=== PATIENT | female | born 1970 | race Caucasian/White ===

== ENCOUNTER → 2016-10-29 | Outpatient (CLI) | payer OTHER ==
[~2016-10-29] MED LIST: ACHYD1T PO; ARIP10TA2 PO; ARPZ10T PO; DCS100C PO; HYDR1TAB75 PO; IBP800T PO; LITH300C; LITH300C PO; NITR100C3 PO; OXYB10TA PO; OXYB5TAB9 PO; PARO10TA21; PHEN200T27 PO; TOPI15CA6 PO; TRAZ150T42 PO
--- OUTSIDE RECORDS SUMMARY | 2016-10-29 13:25 | XMS REPORT ---
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 Active Problem Other and unspecified bipolar disorders 296.89 Active Problem Bipolar 1 disorder F31.9 Active Problem 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
--- NOTE | 2016-10-29 19:00 | Diagnostic Imaging Report ---
Bilateral screening mammogram. The current study was also evaluated with a Computer Aided Detection (CAD) system. INDICATION: Screening. No current complaints stated on the questionnaire. COMPARISON: 07/12/12. FINDINGS: The breasts are composed of scattered fibroglandular densities. There are occasional benign-appearing calcifications. Allowing for technique and positional differences, no suspicious change is seen. IMPRESSION: No significant change. ACR BI-RADS Category 2: Benign findings. Result letter will be mailed to the patient. Note: At least 10% of breast cancer is not imaged by mammography. Dictated by: Dictated on workstation # [id number]
== END ==
LOC: RAD 13:21
PROVIDERS: ATTEND Nurse Practitioner Adult Health
DX: Z12.31 Encounter for screening mammogram for malignant neoplasm of breast (principal)
CPT/HCPCS: 77067

== ENCOUNTER 2017-03-25 21:52 | Emergency (ER) | payer SELFPAY ==
[~2017-03-25] VITALS: Ht 165.1 cm; Wt 77.1 kg
[2017-03-25] MEDS ORDERED: QUET100T69 (22:22)
[2017-03-25] MEDS ORDERED: CITA10TA7 (22:22)
[2017-03-25] MEDS ORDERED: DICY10CA12 (22:22)
[2017-03-25] MEDS ORDERED: ETOD400T PO (22:22)
[2017-03-25] MEDS ORDERED: FAMOTIDINE 20 MG (PEPCID) TABLET PO STA (23:18)
[2017-03-25] MEDS ORDERED: ONDANSETRON 4 MG (ZOFRAN) ORAL DISSOLVE TAB SL STA (23:18)
--- NOTE | 2017-03-25 23:18 | ED General ---
General Chief Complaint: Bite-Animal/Human/Insect Stated Complaint: RT LEG SWELLING FROM SPIDER BITE X3 WEEK/VOMITTING Nursing Triage Note: c/o spider bite 3 weeks ago, c/o tick bite 2 weeks ago. c/o n/v. generalized weakness Nursing Sepsis Screen: No Definite Risk History of Present Illness Time Seen by Provider: 21:00 Initial Comments Evaluation for spider bite to the right ankle and take bite to the right lower abdomen. He was initially prescribed doxycycline she stopped taking this approximately 3 days ago and was prescribed Bactrim DS and is currently taking this. Timing/Duration: Getting Worse Severity: Mild Modifying Factors: improves with Rest Associated Systoms: No Chest Pain, No Cough, No Diaphoresis, No Fever/Chills, No Headaches, No Loss of Appetite, No Malaise, Nausea/Vomiting, No Rash, No Shortness of Air, No Syncope, No Weakness, Other (patient denies arthralgias and myalgias.) Allergies and Home Medications Allergies Coded Allergies: No Known Drug Allergies (Unverified , 12/19/09) Home Medications Citalopram Hydrobromide 10 Mg Tablet, #30 (Reported) Dicyclomine HCl 10 Mg Capsule, #90 (Reported) Etodolac 400 Mg Tablet, 400 MG PO, (Reported) Mupirocin Calcium 15 Gm Cream..g., 15 GM TP TID, #1 Ref 0 Apply to affected area 3 times a day. Prescribed by: COREY SANDOVAL on 03/26/17 0015 Oxybutynin Chloride 10 Mg Tab.osm.24, 5 MG PO TID, (Reported) Quetiapine Fumarate 100 Mg Tablet, #30 (Reported) Topiramate 15 Mg Cap.sprink, 50 MG PO BID, (Reported) DOESN'T TAKE FOR SEIZURES Constitutional: no symptoms reported, see HPI EENTM: no symptoms reported, see HPI Respiratory: no symptoms reported, see HPI Cardiovascular: no symptoms reported, see HPI Gastrointestinal: see HPI, nausea Genitourinary: no symptoms reported, see HPI Musculoskeletal: no symptoms reported, see HPI Skin: see HPI, other (insect bite to right lateral ankle, bite to right lower abdomen) Psychiatric/Neurological: No Symptoms Reported, See HPI Hematologic/Lymphatic: No Symptoms Reported, See HPI Immunological/Allergic: no symptoms reported, see HPI All Other Systems Reviewed Negative Unless Noted: Yes Past Xysvwzi-Occiul-Jzemta Hx Patient Social History Alcohol Use: Denies Use Recreational Drug Use: No (RECOVERING ALCOHOLIC AND ADICT 7 YRS) Smoking Status: Current Everyday Smoker Type Used: Cigarettes Recent Foreign Travel: No Contact w/Someone Who Travel: No Recent Infectious Disease Expo: No Recent Hopitalizations: No Surgeries Surgeries: Breast, Eye Surgery, Gallbladder, Hysterectomy Respiratory Hx Respiratory Disorders: No Cardiovascular Hx Cardiac Disorders: No Neurological Hx Neurological Disorders: No Reproductive System Hx Reproductive Disorders: Yes Sexually Transmitted Disease: No Genitourinary Hx Genitourinary Disorders: Yes Gastrointestinal Hx Gastrointestinal Disorders: No Musculoskeletal Hx Musculoskeletal Disorders: No Endocrine Hx Endocrine Disorders: No HEENT HX ENT Disorders: No Psychosocial Hx Psychiatric Problems: Yes (BIPOLAR ) Behavioral Health Disorders: Bipolar, Schizophrenia Blood Transfusions Hx Blood Disorders: No Reviewed Nursing Assessment Reviewed/Agree w Nursing PMH: Yes Physical Exam Vital Signs Vital Sign - Last 12Hours 03/25/17 22:14 Temp 99.4 Pulse 73 Resp 18 B/P (MAP) 137/86 Pulse Ox 97 Capillary Refill : Less Than 3 Seconds General Appearance: No Apparent Distress, WD/WN HEENT: PERRL/EOMI, TMs Normal, Normal ENT Inspection, Pharynx Normal Neck: Full Range of Motion, Normal Inspection, Non Tender Respiratory: Chest Non Tender, Lungs Clear, Normal Breath Sounds, No Accessory Muscle Use, No Respiratory Distress Cardiovascular: Regular Rate, Rhythm, No Edema, No Murmur, Normal Peripheral Pulses Gastrointestinal: Normal Bowel Sounds, Non Tender, Soft Back: Normal Inspection, No CVA Tenderness Extremity: Normal Capillary Refill, Normal Inspection, Normal Range of Motion, Non Tender, No Pedal Edema Neurologic/Psychiatric: Alert, Oriented x3, No Motor/Sensory Deficits, Normal Mood/Affect Skin: Normal Color, Warm/Dry, Other (trace erythema with small puncture site to the lateral aspect of the right ankle. No warmth, fluctuance or induration noted. No active drainage.) Progress/Results/Core Measures Results/Orders Lab Results Laboratory Tests Test 03/25/17 23:26 Range/Units White Blood Count 10.7 4.3-11.0 10^3/uL Red Blood Count 4.39 4.35-5.85 10^6/uL Hemoglobin 14.1 11.5-16.0 G/DL Hematocrit 41 35-52 % Mean Corpuscular Volume 94 80-99 FL Mean Corpuscular Hemoglobin 32 25-34 PG Mean Corpuscular Hemoglobin Concent 34 32-36 G/DL Red Cell Distribution Width 13.2 10.0-14.5 % Platelet Count 160 130-400 10^3/uL Mean Platelet Volume 11.0 H 7.4-10.4 FL Neutrophils (%) (Auto) 54 42-75 % Lymphocytes (%) (Auto) 33 12-44 % Monocytes (%) (Auto) 8 0-12 % Eosinophils (%) (Auto) 5 0-10 % Basophils (%) (Auto) 0 0-10 % Neutrophils # (Auto) 5.8 1.8-7.8 X 10^3 Lymphocytes # (Auto) 3.5 1.0-4.0 X 10^3 Monocytes # (Auto) 0.9 0.0-1.0 X 10^3 Eosinophils # (Auto) 0.5 H 0.0-0.3 10^3/uL Basophils # (Auto) 0.0 0.0-0.1 10^3/uL Sodium Level 140 135-145 MMOL/L Potassium Level 3.9 3.6-5.0 MMOL/L Chloride Level 113 H 98-107 MMOL/L Carbon Dioxide Level 16 L 21-32 MMOL/L Anion Gap 11 5-14 MMOL/L Blood Urea Nitrogen 16 7-18 MG/DL Creatinine 0.99 0.60-1.30 MG/DL Estimat Glomerular Filtration Rate > 60 BUN/Creatinine Ratio 16 Glucose Level 75 70-105 MG/DL Calcium Level 9.1 8.5-10.1 MG/DL Total Bilirubin 0.3 0.1-1.0 MG/DL Aspartate Amino Transf (AST/SGOT) 15 5-34 U/L Alanine Aminotransferase (ALT/SGPT) 16 0-55 U/L Alkaline Phosphatase 62 40-136 U/L Total Protein 7.6 6.4-8.2 GM/DL Albumin 4.4 3.2-4.5 GM/DL My Orders Orders - COREY SANDOVAL Cbc With Automated Diff (03/25/17 22:46) Comprehensive Metabolic Panel (03/25/17 22:46) Tick Panel With Lyme Eia (03/25/17 22:46) Ondansetron Oral Dissolve Tab (Zofran (03/25/17 23:18) Famotidine Tablet (Pepcid Tablet) (03/25/17 23:18) Vital Signs/I&O Vital Sign - Last 12Hours 03/25/17 03/26/17 22:14 00:18 Temp 99.4 99.4 Pulse 73 73 Resp 18 18 B/P (MAP) 137/86 Pulse Ox 97 97 Blood Pressure Mean: 103 Progress Note : Time: 21:00 Progress Note Initial evaluation completed, recommended labs and reevaluation. 2349 all labs essentially normal, patient reports that she is feeling better. She'll follow up with results from the tick panel at [facility]. Departure Impression Impression: Primary Impression: Insect bite Qualified Codes: W57.XXXA - Bitten or stung by nonvenomous insect and other nonvenomous arthropods, initial encounter Disposition: HOME, SELF-CARE Condition: Stable Departure-Patient Inst. Decision time for Depature: 23:30 Referrals: PEEWEE STAPLETON DO (PCP) Primary Care Physician DIONNE OLEA (Family) Primary Care Physician Patient Instructions: Insect Bites and Stings (DC) Add. Discharge Instructions: Keep insect bite areas clean and dry. Apply peroxide 3-4 times a day, and apply Bactroban ointment. Resume doxycycline and continue taking Bactrim DS. Follow-up at [facility] if symptoms are not improving. Return to emergency department if symptoms worsen. All discharge instructions reviewed with patient and/or family. Voiced understanding. Scripts Mupirocin Calcium (Bactroban) 15 Gm Cream..g. 15 GM TP TID, #1 TUBE 0 Refills Apply to affected area 3 times a day. Prov: COREY SANDOVAL 03/26/17 Copy Copies To 1: NAS MARAVILLA MD, AMY ARNP Mar 25, 2017 23:18
[2017-03-25 23:47] LABS: BASOPHILS % (AUTO) 0 % (0-10); EOSINOPHILS # (AUTO) 0.5 10^3/uL (0.0-0.3); EOSINOPHILS % (AUTO) 5 % (0-10); LYMPHOCYTES # (AUTO) 3.5 X 10^3 (1.0-4.0); LYMPHOCYTES % (AUTO) 33 % (12-44); MEAN CORPUSCULAR HEMOGLOBIN 32 PG (25-34); MEAN CORPUSCULAR HGB CONC 34 G/DL (32-36); MEAN CORPUSCULAR VOLUME 94 FL (80-99); MONOCYTES # (AUTO) 0.9 X 10^3 (0.0-1.0); MONOCYTES % (AUTO) 8 % (0-12); NEUTROPHILS # (AUTO) 5.8 X 10^3 (1.8-7.8); NEUTROPHILS % (AUTO) 54 % (42-75); PLATELET COUNT 160 10^3/uL (130-400); RED BLOOD COUNT 4.39 10^6/uL (4.35-5.85); RED CELL DISTRIBUTION WIDTH 13.2 % (10.0-14.5); WHITE BLOOD COUNT 10.7 10^3/uL (4.3-11.0)
[2017-03-26 00:11] LABS: ALANINE AMINOTRANSFERASE 16 U/L (0-55); ALBUMIN 4.4 GM/DL (3.2-4.5); ANION GAP 11 MMOL/L (5-14); ASPARTATE AMINO TRANSFERASE 15 U/L (5-34); BILIRUBIN,TOTAL 0.3 MG/DL (0.1-1.0); BLOOD UREA NITROGEN 16 MG/DL (7-18); BUN/CREATININE RATIO 16; CALCIUM 9.1 MG/DL (8.5-10.1); CARBON DIOXIDE 16 MMOL/L (21-32); CHLORIDE 113 MMOL/L (98-107); CREATININE SERUM 0.99 MG/DL (0.60-1.30); GFR ESTIMATED > 60; GLUCOSE 75 MG/DL (70-105); POTASSIUM 3.9 MMOL/L (3.6-5.0); SODIUM 140 MMOL/L (135-145); TOTAL PROTEIN 7.6 GM/DL (6.4-8.2)
[2017-03-26] MEDS ORDERED: MUPI15CR TP (00:15)
[2017-03-26 00:18] VITALS: BP 137/86
[2017-03-26 23:29] LABS: LYME AB G M 0.16 Index (0.00-0.89)
[2017-03-29 07:20] LABS: LYME AB INTERP Negative (Negative)
[2017-03-29 15:51] LABS: IGG ROCKY MOUNTAIN SPOTTED FEV <1:16 (<1:16); IGM ROCKY MOUNTAIN SPOTTED FEV <1:10 (<1:10)
--- OUTSIDE RECORDS SUMMARY | 2017-03-30 05:15 | XMS REPORT ---
Author Author FREDDY GARCES Organization eClinicalWorks Address Unknown Phone Unavailable Care Team Providers Care Polymer Tester Name Role Phone FREDDY GARCES CP Unavailable [...] Start Date End Date Status Dosage Topiramate [facility] [address]-10 100 MG Orally Once a day 1 1/2 tablets Results No Known Results Summary Purpose eClinicalWorks Submission
--- OUTSIDE RECORDS SUMMARY | 2017-03-30 05:15 | XMS REPORT ---
Author Author FREDDY GARCES Organization eClinicalWorks Address Unknown Phone Unavailable Care Team Providers Care Casting House Laborer Name Role Phone FREDDY GARCES CP Unavailable Allergies, Adverse Reactions, Alerts Substance Reaction Event Type N.K.D.A. 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 Problem [...] Start Date End Date Status Dosage Topiramate [facility] [address]-20 50 mg TAKE THREE TABLETS BY MOUTH ONCE DAILY Seroquel [facility] [address]-52 300 MG Orally Once a day Sep 03, 2015 1 tablet at bedtime Procedures Procedure Coding System Code Date Office Visit, Est Pt., Level 3 CPT-4 22295 2016 Vital Signs Date/Time: 2016 Cardiac Monitoring Heart Rate 96 bpm Weight 154.7 lbs Height 66 in BMI 24.97 Index Blood Pressure Diastolic 60 mmHg Blood Pressure Systolic 110 mmHg Results No Known Results Summary Purpose eClinicalWorks Submission
--- OUTSIDE RECORDS SUMMARY | 2017-03-30 05:16 | XMS REPORT ---
Author Author FREDDY GARCES Organization eClinicalWorks Address Unknown Phone Unavailable Care Team Providers Care Mental Health Nurse Name Role Phone FREDDY GARCES CP Unavailable Allergies No Known Allergies Problems Problem Type Condition Code Onset Dates Condition Status Problem Spasm of muscle 728.85 Active Problem Bipolar I disorder, most recent episode (or current) mixed, severe, without mention of psychotic behavior 296.63 Active Problem Unspecified urticaria 708.9 Active Assessment Bipolar disorder, current episode mixed, [...] Start Date End Date Status Dosage Topiramate [facility] [address]-94 100 MG Orally Once a day 1 1/2 tablets Seroquel [facility] [address]-65 300 MG Orally Once a day Sep 03, 2015 1 tablet at bedtime Citalopram Hydrobromide [facility] [address]-15 10 MG Orally every morning Jul 1 tablet Procedures Procedure Coding System Code Date Office Visit, Est Pt., Level 3 CPT-4 27555 Aug 11, 2016 Vital Signs Date/Time: Aug 11, 2016 Cardiac Monitoring Heart Rate 80 bpm Weight 154.5 lbs Height 66 in BMI 24.93 Index Blood Pressure Diastolic 78 mmHg Blood Pressure Systolic 124 mmHg Results No Known Results Summary Purpose eClinicalWorks Submission
--- OUTSIDE RECORDS SUMMARY | 2017-03-30 05:16 | XMS REPORT ---
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 Problem Unspecified breast screening V76.10 Active Problem Bipolar I disorder, most recent episode (or current) mixed, severe, without mention of psychotic behavior 296.63 Active Problem Other, multiple, and unspecified sites, insect bite, nonvenomous, without mention of infection 919.4 Active Problem 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 Must attend appt on 01/21/2016 for refills TAKE THREE TABLETS BY MOUTH ONCE DAILY Results No Known Results Summary Purpose eClinicalWorks Submission
--- OUTSIDE RECORDS SUMMARY | 2017-03-30 05:16 | XMS REPORT ---
Author Author DEBI SALMON Organization eClinicalWorks Address Unknown Phone Unavailable Care Team Providers Care Child And Adolescent Psychologist Name Role Phone DEBI SALMON CP Unavailable Allergies, Adverse Reactions, Alerts Substance Reaction Event Type N.K.D.A. Info Not Available Non Drug Allergy Problems Problem Type Condition Code Onset Dates Condition Status Assessment Bipolar disorder, current episode mixed, severe, without psychotic features F31.63 Active Problem Unspecified urticaria 708.9 Active Problem Spasm of muscle 728.85 Active Assessment Insomnia, unspecified G47.00 Active Problem Other and unspecified bipolar disorders [...] Instructions Start Date End Date Status Dosage Seroquel [facility] [address]-34 50 MG Orally Once a day Sep 03, 2015 1 tablet at bedtime Topamax [facility] [address]-77 50 MG TAKE THREE TABLETS BY MOUTH ONCE DAILY Klonopin [facility] [address]-59 2 MG Orally Once a day 1 tablet Abilify [facility] [address]-36 15 MG Orally Once a day TAKE ONE TABLET BY MOUTH DAILY Procedures Procedure Coding System Code Date Office Visit, Est Pt., Level 4 CPT-4 90589 Oct 01, 2015 Vital Signs Date/Time: Oct 01, 2015 Cardiac Monitoring Heart Rate 84 bpm Weight 174.2 lbs Height 66 in BMI 28.11 Index Blood Pressure Diastolic 85 mmHg Blood Pressure Systolic 130 mmHg Results No Known Results Summary Purpose eClinicalWorks Submission
--- OUTSIDE RECORDS SUMMARY | 2017-03-30 05:16 | XMS REPORT ---
Author Author GATITO KIM [facility] eClinicalWorks Address Unknown Phone Unavailable Care Team Providers Care Kelp Or Seagrass Gatherer Name Role Phone GATITO KIM Unavailable Allergies, Adverse Reactions, Alerts Substance Reaction [...] nonvenomous, without mention of infection 919.4 Active Assessment Plantar wart B07.0 Active Assessment Callus L84 Active Assessment Left foot pain M79.672 Active Assessment Bipolar 1 disorder F31.9 Active Assessment Establishing care with new doctor, encounter for Z71.89 Active Medications Medication Code System Code Instructions Start Date End Date Status Dosage Topamax [facility] [address]-92 50 mg Orally. Must attend appt on 01/21/2016 for refills TAKE THREE TABLETS BY MOUTH ONCE DAILY Clonazepam [facility] 98107739307 2 MG TAKE ONE TABLET BY MOUTH ONCE DAILY Abilify [facility] [address]-71 15 MG Orally Once a day TAKE ONE TABLET BY MOUTH DAILY Klonopin [facility] [address]-58 2 MG Orally Once a day 1 tablet Seroquel [facility] [address]-79 50 MG Orally Once a day Sep 03, 2015 1 tablet at bedtime Procedures Procedure Coding System Code Date DEBRIDE SKIN/TISSUE CPT-4 11623 January 14, 2016 Office Visit, New Pt., Level 3 CPT-4 16647 January 14, 2016 X-RAY EXAM OF FOOT CPT-4 16333 January 14, 2016 Vital Signs Date/Time: January 14, 2016 Temperature 98.4 F Weight 156.3 lbs Height 66 in BMI 25.22 Index Blood Pressure Diastolic 80 mmHg Blood Pressure Systolic 100 mmHg Cardiac Monitoring Heart Rate 96 bpm Results No Known Results Summary Purpose eClinicalWorks Submission
--- OUTSIDE RECORDS SUMMARY | 2017-03-30 05:16 | XMS REPORT ---
Author Author DEBI SALMON Organization eClinicalWorks Address Unknown Phone Unavailable Care Team Providers Care Roving Department End Finder Name Role Phone DEBI SALMON CP Unavailable Allergies No Known Allergies Problems [...] Start Date End Date Status Dosage Seroquel [facility] [address]-66 50 MG Orally Once a day Sep 03, 2015 1 tablet at bedtime Topamax [facility] [address]-38 50 MG TAKE THREE TABLETS BY MOUTH ONCE DAILY Abilify [facility] [address]-22 15 MG Orally Once a day TAKE ONE TABLET BY MOUTH DAILY Results No Known Results Summary Purpose eClinicalWorks Submission
--- OUTSIDE RECORDS SUMMARY | 2017-03-30 05:16 | XMS REPORT ---
Author Author HENRIQUE HASTINGS Organization eClinicalWorks Address Unknown Phone Unavailable Care Team Providers Care Clinical Nurse Specialist Name Role Phone HENRIQUE HASTINGS CP Unavailable Allergies No Known Allergies Problems [...] without mention of infection 919.4 Active Assessment Equinus deformity of foot M21.6X9 Active Assessment Hammer toe of left foot M20.42 Active Assessment Porokeratosis Q82.8 Active Medications No Known Medications Procedures Procedure Coding System Code Date Office Visit, Est Pt., Level 3 CPT-4 64390 March 13, 2016 Vital Signs Date/Time: March 13, 2016 Blood Pressure Diastolic 72 mmHg Blood Pressure Systolic 128 mmHg Height 66 in Results No Known Results Summary Purpose eClinicalWorks Submission
--- OUTSIDE RECORDS SUMMARY | 2017-03-30 05:16 | XMS REPORT ---
Author Author GEORGE WALDEN Organization eClinicalWorks Address Unknown Phone Unavailable Care Team Providers Care Decorator Inspector Name Role Phone GEORGE WALDEN CP Unavailable Allergies, Adverse Reactions, Alerts Substance Reaction Event Type N.K.D.A. Info Not Available Non Drug Allergy Problems Problem Type Condition ICD-9 Code Onset Dates Condition Status Assessment Bipolar I disorder, most recent episode (or current) mixed, severe , without mention of psychotic behavior 296.63 Active [...] Instructions Start Date End Date Status Dosage Loratadine [facility] [address]-17 10 mg December 11, 2014 take 1 tablet by Oral route 1 time per day take at hs Abilify [facility] [address]-12 15 MG Orally Once a day TAKE ONE TABLET BY MOUTH DAILY Klonopin [facility] [address]-59 1 MG Orally Once a day 1 tablet Topamax [facility] [address]-65 50 MG TAKE THREE TABLETS BY MOUTH ONCE DAILY Procedures Procedure Coding System Code Date Office Visit, Est Pt., Level 3 CPT-4 70592 Jun 04, 2015 Vital Signs Date/Time: Jun 04, 2015 Temperature 98.6 F Weight 185.3 lbs Height 66 in BMI 29.90 Index Blood Pressure Diastolic 90 mmHg Blood Pressure Systolic 134 mmHg Cardiac Monitoring Heart Rate 96 bpm Results No Known Results Summary Purpose eClinicalWorks Submission
--- OUTSIDE RECORDS SUMMARY | 2017-03-30 05:16 | XMS REPORT ---
Author FREDDY Sampson eClinicalWorks Address Unknown Phone Unavailable Care Team Providers Care Hedge Fund Accountant Name Role Phone FREDDY GARCES CP Unavailable [...] without mention of infection 919.4 Active Assessment Methamphetamine use F15.10 Active Assessment Other assisted (current) drug therapy Z79.899 Active Assessment Insomnia, unspecified G47.00 Active Assessment Bipolar I disorder, most recent episode (or current) mixed, moderate F31.62 Active Medications Medication Code System Code Instructions Start Date End Date Status Dosage Abilify [facility] 89055919683 15 MG Orally Once a day X 14 days then DC TAKE 1/2 TABLET BY MOUTH DAILY Topiramate [facility] [address]-65 50 mg TAKE THREE TABLETS BY MOUTH ONCE DAILY Seroquel [facility] [address]-65 100 MG Orally Once a day Sep 03, 2015 1 tablet at HS X 2 weeks then 2 tabs at HS X 2 weeks then 3 tabs at HS Procedures Procedure Coding System Code Date LIPID PANEL CPT-4 14622 March 31, 2016 COMPREHEN METABOLIC PANEL CPT-4 35778 March 31, 2016 Office Visit, Est Pt., Level 5 CPT-4 52323 March 31, 2016 Vital Signs Date/Time: March 31, 2016 Cardiac Monitoring Heart Rate 84 bpm Weight 154.6 lbs Height 66 in Blood Pressure Diastolic 68 mmHg Blood Pressure Systolic 110 mmHg Results No Known Results Summary Purpose eClinicalWorks Submission
--- OUTSIDE RECORDS SUMMARY | 2017-03-30 05:16 | XMS REPORT ---
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.0 Active Problem Other and unspecified bipolar disorders 296.89 Active Problem Bipolar 1 disorder F31.9 Active Problem 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
--- OUTSIDE RECORDS SUMMARY | 2017-03-30 05:16 | XMS REPORT ---
Author Author DEBI SALMON Organization eClinicalWorks Address Unknown Phone Unavailable Care Team Providers Care Inspector Bicycle Name Role Phone DEBI SALMON CP Unavailable [...] Start Date End Date Status Dosage Seroquel [facility] [address]-51 50 MG Orally Once a day Sep 03, 2015 1 tablet at bedtime Abilify [facility] [address]-79 15 MG Orally Once a day TAKE ONE TABLET BY MOUTH DAILY Topamax [facility] [address]-84 50 MG TAKE THREE TABLETS BY MOUTH ONCE DAILY Klonopin [facility] [address]-87 2 MG Orally Once a day 1 tablet Procedures Procedure Coding System Code Date Office Visit, Est Pt., Level 4 CPT-4 58884 Sep 03, 2015 Vital Signs Date/Time: Sep 03, 2015 Cardiac Monitoring Heart Rate 88 bpm Weight 174.8 lbs Height 66 in BMI 28.21 Index Blood Pressure Diastolic 84 mmHg Blood Pressure Systolic 138 mmHg Results No Known Results Summary Purpose eClinicalWorks Submission
--- OUTSIDE RECORDS SUMMARY | 2017-03-30 05:17 | XMS REPORT | Continuity of Care Document ---
Author Author [facility] Address Unknown Phone Unavailable Allergies Medications Problems Date Dx Coded Attending Type Code Diagnosis Diagnosed By 12/08/2008 MORENA ROBERTSON APRN 296.90 EPISODIC MOOD DISORDERS 12/08/2008 MARCELO LUGO MORENA ALAN V58.69 taking high-risk medication 12/08/2008 MORENA ROBERTSON APRN 296.90 EPISODIC MOOD DISORDERS 12/08/2008 MORENA ROBERTSON APRN V58.69 taking high-risk medication 12/08/2008 296.90 EPISODIC MOOD DISORDERS 12/08/2008 V58.69 taking high-risk medication 12/08/2008 296.90 EPISODIC MOOD DISORDERS 12/08/2008 V58.69 taking high-risk medication 12/08/2008 296.90 EPISODIC MOOD DISORDERS 12/08/2008 V58.69 taking high-risk medication 12/08/2008 MARCELO LUGO MORENA ALAN 296.90 EPISODIC MOOD DISORDERS 12/08/2008 MARCELO LUGO MORENA ALAN V58.69 taking high-risk medication 12/08/2008 MORENA ROBERTSON APRN 296.90 EPISODIC MOOD DISORDERS 12/08/2008 MORENA ROBERTSON APRN V58.69 taking high-risk medication 12/08/2008 STAPLETON DO PEEWEE K 296.90 EPISODIC MOOD DISORDERS 12/08/2008 STAPLETON DO PEEWEE K V58.69 taking high-risk medication 12/08/2008 MARCELO LUGO MORENA ALAN 296.90 EPISODIC MOOD DISORDERS 12/08/2008 MORENA ROBERTSON APRN V58.69 taking high-risk medication 12/08/2008 MORENA ROBERTSON APRN 296.90 EPISODIC MOOD DISORDERS 12/08/2008 MORENA ROBERTSON APRN V58.69 taking high-risk medication 12/08/2008 IRAMBLAYNE LUGO GEORGE 296.90 EPISODIC MOOD DISORDERS 12/08/2008 IRAM POULTRY VETERINARIAN, GEORGE V58.69 taking high-risk medication 12/08/2008 ATIF LUGO, KERA R 296.90 EPISODIC MOOD DISORDERS 12/08/2008 ATIF LUGO, KERA R V58.69 taking high-risk medication 12/08/2008 DEBRA WALDEN APRNETTE 296.90 EPISODIC MOOD DISORDERS 12/08/2008 IRAM LUGO GEORGE V58.69 taking high-risk medication 12/08/2008 296.90 EPISODIC MOOD DISORDERS 12/08/2008 V58.69 taking high-risk medication 05/17/2009 MARCELO LUGO MORENA KINCAIDH 799.81 changed sexual interest (libido): decreased 05/17/2009 MARCELO LUGO MORENA PHILLIPS V72.31 Pelvic Exam (Internal) 05/17/2009 MARCELO LUGO MORENA KINCAIDH 799.81 changed sexual interest (libido): decreased 05/17/2009 MARCELO LUGO MORENA KINCAIDH V72.31 Pelvic Exam (Internal) 05/17/2009 799.81 changed sexual interest (libido): decreased 05/17/2009 V72.31 Pelvic Exam (Internal) 05/17/2009 799.81 changed sexual interest (libido): decreased 05/17/2009 V72.31 Pelvic Exam (Internal) 05/17/2009 799.81 changed sexual interest (libido): decreased 05/17/2009 V72.31 Pelvic Exam (Internal) 05/17/2009 ROBERTSON POULTRY VETERINARIAN, MORENA KINCAIDH 799.81 changed sexual interest (libido): decreased 05/17/2009 MARCELO LUGO MORENA PHILLIPS V72.31 Pelvic Exam (Internal) 05/17/2009 ROBERTSON POULTRY VETERINARIAN, MORENA KINCAIDH 799.81 changed sexual interest (libido): decreased 05/17/2009 MARCELO LUGO MORENA PHILLIPS V72.31 Pelvic Exam (Internal) 05/17/2009 PEEWEE STAPLETON DO K 799.81 changed sexual interest (libido): decreased 05/17/2009 PEEWEE STAPLETON DO K V72.31 Pelvic Exam (Internal) 05/17/2009 MARCELO LUGO MORENA ALAN 799.81 changed sexual interest (libido): decreased 05/17/2009 MARCELO LUGO MORENA KINCAIDH V72.31 Pelvic Exam (Internal) 05/17/2009 MARCELO LUGO MORENA ALAN 799.81 changed sexual interest (libido): decreased 05/17/2009 MORENA ROBERTSON APRN V72.31 Pelvic Exam (Internal) 05/17/2009 IRAM LUGO GEORGE 799.81 changed sexual interest (libido): decreased 05/17/2009 IRAM LUGO GEORGE V72.31 Pelvic Exam (Internal) 05/17/2009 ATIF LUGO KERA R 799.81 changed sexual interest (libido): decreased 05/17/2009 ATIF LUGO KERA R V72.31 Pelvic Exam (Internal) 05/17/2009 IRAM LUGO, GEORGE 799.81 changed sexual interest (libido): decreased 05/17/2009 IRAM LUGO GEORGE V72.31 Pelvic Exam (Internal) 05/17/2009 799.81 changed sexual interest (libido): decreased 05/17/2009 V72.31 Pelvic Exam (Internal) 11/12/2009 MORENA ROBERTSON APRN 611.72 LUMP OR MASS IN BREAST 11/12/2009 MORENA ROBERTSON APRN 611.72 LUMP OR MASS IN BREAST 11/12/2009 611.72 LUMP OR MASS IN BREAST 11/12/2009 611.72 LUMP OR MASS IN BREAST 11/12/2009 611.72 LUMP OR MASS IN BREAST 11/12/2009 MORENA ROBERTSON APRN 611.72 LUMP OR MASS IN BREAST 11/12/2009 MORENA ROBERTSON APRN 611.72 LUMP OR MASS IN BREAST 11/12/2009 PEEWEE STAPLETON DO 611.72 LUMP OR MASS IN BREAST 11/12/2009 MORENA ROBERTSON APRN 611.72 LUMP OR MASS IN BREAST 11/12/2009 MORENA ROBERTSON APRN 611.72 LUMP OR MASS IN BREAST 11/12/2009 IRAM LUGO, GEORGE 611.72 LUMP OR MASS IN BREAST 11/12/2009 ATIF LUGO KERA R 611.72 LUMP OR MASS IN BREAST 11/12/2009 IRAM LUGO GEORGE 611.72 LUMP OR MASS IN BREAST 11/12/2009 611.72 LUMP OR MASS IN BREAST 08/05/2010 MARCELO REAGANNMORENAH 596.8 OTHER SPECIFIED DISORDERS OF BLADDER 08/05/2010 MARCELO REAGANNMORENAH 788.63 URGENCY OF URINATION 08/05/2010 MARCELO REAGANNMORENAH 596.8 OTHER SPECIFIED DISORDERS OF BLADDER 08/05/2010 MORENA ROBERTSON APRNH 788.63 URGENCY OF URINATION 08/05/2010 596.8 OTHER SPECIFIED DISORDERS OF BLADDER 08/05/2010 788.63 URGENCY OF URINATION 08/05/2010 596.8 OTHER SPECIFIED DISORDERS OF BLADDER 08/05/2010 788.63 URGENCY OF URINATION 08/05/2010 596.8 OTHER SPECIFIED DISORDERS OF BLADDER 08/05/2010 788.63 URGENCY OF URINATION 08/05/2010 MARCELO REAGANNMORENA ALAN 596.8 OTHER SPECIFIED DISORDERS OF BLADDER 08/05/2010 MARCELO REAGANNMORENAH 788.63 URGENCY OF URINATION 08/05/2010 MARCELO REAGANNMORENAH 596.8 OTHER SPECIFIED DISORDERS OF BLADDER 08/05/2010 ROBERTSON POULTRY VETERINARIANMORENA ALAN 788.63 URGENCY OF URINATION 08/05/2010 STAPLETON DO, PEEWEE K 596.8 OTHER SPECIFIED DISORDERS OF BLADDER 08/05/2010 STAPLETON DO, PEEWEE K 788.63 URGENCY OF URINATION 08/05/2010 ROBERTSON POULTRY VETERINARIANMORENA ALAN 596.8 OTHER SPECIFIED DISORDERS OF BLADDER 08/05/2010 ROBERTSON POULTRY VETERINARIAN, MORENA ALAN 788.63 URGENCY OF URINATION 08/05/2010 ROBERTSON POULTRY VETERINARIAN MORENA ALAN 596.8 OTHER SPECIFIED DISORDERS OF BLADDER 08/05/2010 ROBERTSON POULTRY VETERINARIAN MORENA ALAN 788.63 URGENCY OF URINATION 08/05/2010 IRAM POULTRY VETERINARIAN, GEORGE 596.8 OTHER SPECIFIED DISORDERS OF BLADDER 08/05/2010 IRAM POULTRY VETERINARIAN, GEORGE 788.63 URGENCY OF URINATION 08/05/2010 ATIF POULTRY VETERINARIAN, KERA R 596.8 OTHER SPECIFIED DISORDERS OF BLADDER 08/05/2010 ATIF POULTRY VETERINARIAN, KERA R 788.63 URGENCY OF URINATION 08/05/2010 IRAM POULTRY VETERINARIAN, GEORGE 596.8 OTHER SPECIFIED DISORDERS OF BLADDER 08/05/2010 IRAM POULTRY VETERINARIAN, GEORGE 788.63 URGENCY OF URINATION 08/05/2010 596.8 OTHER SPECIFIED DISORDERS OF BLADDER 08/05/2010 788.63 URGENCY OF URINATION 07/28/2011 MORENA ROBERTSON APRN 465.9 UPPER RESPIRATORY INFECTION 07/28/2011 MORENA ROBERTSON APRN 783.1 WEIGHT GAIN ABNORMAL 07/28/2011 MORENA ROBERTSON APRNH 786.2 COUGH 07/28/2011 MORENA ROBERTSON APRN 465.9 UPPER RESPIRATORY INFECTION 07/28/2011 MORENA ROBERTSON APRNH 783.1 WEIGHT GAIN ABNORMAL 07/28/2011 MORENA ROBERTSON APRN 786.2 COUGH 07/28/2011 465.9 UPPER RESPIRATORY INFECTION 07/28/2011 783.1 WEIGHT GAIN ABNORMAL 07/28/2011 786.2 COUGH 07/28/2011 465.9 UPPER RESPIRATORY INFECTION 07/28/2011 783.1 WEIGHT GAIN ABNORMAL 07/28/2011 786.2 COUGH 07/28/2011 465.9 UPPER RESPIRATORY INFECTION 07/28/2011 783.1 WEIGHT GAIN ABNORMAL 07/28/2011 786.2 COUGH 07/28/2011 MORENA ROBERTSON APRN 465.9 UPPER RESPIRATORY INFECTION 07/28/2011 MORENA ROBERTSON APRNH 783.1 WEIGHT GAIN ABNORMAL 07/28/2011 MORENA ROBERTSON APRNH 786.2 COUGH 07/28/2011 MORENA ROBERTSON APRN 465.9 UPPER RESPIRATORY INFECTION 07/28/2011 MORENA ROBERTSON APRNH 783.1 WEIGHT GAIN ABNORMAL 07/28/2011 MORENA ROBERTSON APRNH 786.2 COUGH 07/28/2011 STAPLETON DO, PEEWEE K 465.9 UPPER RESPIRATORY INFECTION 07/28/2011 STAPLETON DO, PEEWEE K 783.1 WEIGHT GAIN ABNORMAL 07/28/2011 STAPLETON DO, PEEWEE K 786.2 COUGH 07/28/2011 ROBERTSONMORENA BELLAMY APRN 465.9 UPPER RESPIRATORY INFECTION 07/28/2011 ROBERTSON MORENA LUGOH 783.1 WEIGHT GAIN ABNORMAL 07/28/2011 ROBERTSON MORENA LUGOH 786.2 COUGH 07/28/2011 MORENA ROBERTSON APRN 465.9 UPPER RESPIRATORY INFECTION 07/28/2011 MORENA ROBERTSON APRN 783.1 WEIGHT GAIN ABNORMAL 07/28/2011 MORENA ROBERTSON APRN 786.2 COUGH 07/28/2011 IRAM POULTRY VETERINARIAN, GEORGE 465.9 UPPER RESPIRATORY INFECTION 07/28/2011 IRAM POULTRY VETERINARIAN, GEORGE 783.1 WEIGHT GAIN ABNORMAL 07/28/2011 IRAM POULTRY VETERINARIAN, GEORGE 786.2 COUGH 07/28/2011 ATIF POULTRY VETERINARIAN, KERA R 465.9 UPPER RESPIRATORY INFECTION 07/28/2011 ATIF POULTRY VETERINARIAN, KERA R 783.1 WEIGHT GAIN ABNORMAL 07/28/2011 ATIF POULTRY VETERINARIAN, KERA R 786.2 COUGH 07/28/2011 IRAM POULTRY VETERINARIAN, GEORGE 465.9 UPPER RESPIRATORY INFECTION 07/28/2011 IRAM POULTRY VETERINARIAN, GEORGE 783.1 WEIGHT GAIN ABNORMAL 07/28/2011 IRAM POULTRY VETERINARIAN, GEORGE 786.2 COUGH 07/28/2011 465.9 UPPER RESPIRATORY INFECTION 07/28/2011 783.1 WEIGHT GAIN ABNORMAL 07/28/2011 786.2 COUGH 08/24/2011 MARCELO REAGANNMORENA ALAN 296.62 MO BIPOLAR I MIXED MODERATE 08/24/2011 MARCELO REAGANSamuel MORENA ALAN 296.62 MO BIPOLAR I MIXED MODERATE 08/24/2011 296.62 MO BIPOLAR I MIXED MODERATE 08/24/2011 296.62 MO BIPOLAR I MIXED MODERATE 08/24/2011 296.62 MO BIPOLAR I MIXED MODERATE 08/24/2011 MARCELO LUGO MORENA ALAN 296.62 MO BIPOLAR I MIXED MODERATE 08/24/2011 MARCELO LUGO MORENA ALAN 296.62 MO BIPOLAR I MIXED MODERATE 08/24/2011 PEEWEE STAPLETON DO 296.62 MO BIPOLAR I MIXED MODERATE 08/24/2011 MARCELO LUGO MORENA ALAN 296.62 MO BIPOLAR I MIXED MODERATE 08/24/2011 MARCELO LUGO MORENA ALAN 296.62 MO BIPOLAR I MIXED MODERATE 08/24/2011 IRAM POULTRY VETERINARIAN, GEORGE 296.62 MO BIPOLAR I MIXED MODERATE 08/24/2011 ATIF POULTRY VETERINARIAN, KERA R 296.62 MO BIPOLAR I MIXED MODERATE 08/24/2011 IRAM POULTRY VETERINARIAN, GEORGE 296.62 MO BIPOLAR I MIXED MODERATE 08/24/2011 296.62 MO BIPOLAR I MIXED MODERATE 09/23/2011 ROBERTSONNICOLE LUGO MORENA ALAN 296.89 MO BIPOLAR II 09/23/2011 MARCELO LUGO MORENA ALAN 296.89 MO BIPOLAR II 09/23/2011 296.89 MO BIPOLAR II 09/23/2011 296.89 MO BIPOLAR II 09/23/2011 296.89 MO BIPOLAR II 09/23/2011 MARCELO LUGO MORENA ALAN 296.89 MO BIPOLAR II 09/23/2011 MARCELO LUGO MORENA ALAN 296.89 MO BIPOLAR II 09/23/2011 PEEWEE STAPLETON DO 296.89 MO BIPOLAR II 09/23/2011 MARCELO LUGO MORENA ALAN 296.89 MO BIPOLAR II 09/23/2011 MARCELO LUGO MORENA ALAN 296.89 MO BIPOLAR II 09/23/2011 GEORGE WALDEN APRN 296.89 MO BIPOLAR II 09/23/2011 KERA SRIVASTAVA APRN 296.89 MO BIPOLAR II 09/23/2011 DEBRA WALEDN APRNETTE 296.89 MO BIPOLAR II 09/23/2011 296.89 MO BIPOLAR II 03/10/2012 MARCELO LUGO MORENA ALAN 296.63 MO BIPOLAR I MIXED SEVERE W/O PSYCHOTIC BEHAVIOR 03/10/2012 MARCELO LUGO MORENA ALAN 296.63 MO BIPOLAR I MIXED SEVERE W/O PSYCHOTIC BEHAVIOR 03/10/2012 296.63 MO BIPOLAR I MIXED SEVERE W/O PSYCHOTIC BEHAVIOR 03/10/2012 296.63 MO BIPOLAR I MIXED SEVERE W/O PSYCHOTIC BEHAVIOR 03/10/2012 296.63 MO BIPOLAR I MIXED SEVERE W/O PSYCHOTIC BEHAVIOR 03/10/2012 MARCELO LUGO MORENA ALAN 296.63 MO BIPOLAR I MIXED SEVERE W/O PSYCHOTIC BEHAVIOR 03/10/2012 MARCELO LUGO MORENA ALAN 296.63 MO BIPOLAR I MIXED SEVERE W/O PSYCHOTIC BEHAVIOR 03/10/2012 PEEWEE STAPLETON DO 296.63 MO BIPOLAR I MIXED SEVERE W/O PSYCHOTIC BEHAVIOR 03/10/2012 MARCELO LUGO MORENA ALAN 296.63 MO BIPOLAR I MIXED SEVERE W/O PSYCHOTIC BEHAVIOR 03/10/2012 MORENA ROBERTSON APRN 296.63 MO BIPOLAR I MIXED SEVERE W/O PSYCHOTIC BEHAVIOR 03/10/2012 IRAM LUGO GEORGE 296.63 MO BIPOLAR I MIXED SEVERE W/O PSYCHOTIC BEHAVIOR 03/10/2012 ATIF BRITTNEY KERA R 296.63 MO BIPOLAR I MIXED SEVERE W/O PSYCHOTIC BEHAVIOR 03/10/2012 IRAMBLAYNE REAGANGEORGE Baker 296.63 MO BIPOLAR I MIXED SEVERE W/O PSYCHOTIC BEHAVIOR 03/10/2012 296.63 MO BIPOLAR I MIXED SEVERE W/O PSYCHOTIC BEHAVIOR 07/04/2012 MARCELO BRITTNEY MORENA PHILLIPS 339.10 HEADACHE, TENSION-TYPE 07/04/2012 MARCELO REAGANSamuel MORENA PHILLIPS 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 07/04/2012 MARCELO REAGANSamuel MORENA PHILLIPS 919.4 INSECT BITE NONVENOMOUS OF OTHER MULTIPLE AND UNSPECIFIED SITES WITHOUT INFECTION 07/04/2012 ROBERTSONNICOLE LUGO MORENA PHILLIPS V76.10 BREAST CANCER SCREENING 07/04/2012 ROBERTSON BRITTNEY MORENA ALAN 339.10 HEADACHE, TENSION-TYPE 07/04/2012 MARCELO REAGANSamuel MORENA ALAN 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 07/04/2012 ROBERTSON BRITTNEY MORENA PHILLIPS 919.4 INSECT BITE NONVENOMOUS OF OTHER MULTIPLE AND UNSPECIFIED SITES WITHOUT INFECTION 07/04/2012 MARCELO REAGANSamuel MORENA PHILLIPS V76.10 BREAST CANCER SCREENING 07/04/2012 339.10 HEADACHE, TENSION-TYPE 07/04/2012 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 07/04/2012 919.4 INSECT BITE NONVENOMOUS OF OTHER MULTIPLE AND UNSPECIFIED SITES WITHOUT INFECTION 07/04/2012 V76.10 BREAST CANCER SCREENING 07/04/2012 339.10 HEADACHE, TENSION-TYPE 07/04/2012 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 07/04/2012 919.4 INSECT BITE NONVENOMOUS OF OTHER MULTIPLE AND UNSPECIFIED SITES WITHOUT INFECTION 07/04/2012 V76.10 BREAST CANCER SCREENING 07/04/2012 339.10 HEADACHE, TENSION-TYPE 07/04/2012 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 07/04/2012 919.4 INSECT BITE NONVENOMOUS OF OTHER MULTIPLE AND UNSPECIFIED SITES WITHOUT INFECTION 07/04/2012 V76.10 BREAST CANCER SCREENING 07/04/2012 MARCELO BRITTNEY MORENA ALAN 339.10 HEADACHE, TENSION-TYPE 07/04/2012 ROBERTSON BRITTNEY MORENA ALAN 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 07/04/2012 MORENA ROBERTSON APRN 919.4 INSECT BITE NONVENOMOUS OF OTHER MULTIPLE AND UNSPECIFIED SITES WITHOUT INFECTION 07/04/2012 MORENA ROBERTSON APRN V76.10 BREAST CANCER SCREENING 07/04/2012 MORENA ROBERTSON APRN 339.10 HEADACHE, TENSION-TYPE 07/04/2012 MORENA ROBERTSON APRN 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 07/04/2012 MARCELO REAGANNMORENA 919.4 INSECT BITE NONVENOMOUS OF OTHER MULTIPLE AND UNSPECIFIED SITES WITHOUT INFECTION 07/04/2012 MORENA ROBERTSON APRN V76.10 BREAST CANCER SCREENING 07/04/2012 STAPLETON DO PEEWEE K 339.10 HEADACHE, TENSION-TYPE 07/04/2012 STAPLETON DO PEEWEE K 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 07/04/2012 STAPLETON DO PEEWEE K 919.4 INSECT BITE NONVENOMOUS OF OTHER MULTIPLE AND UNSPECIFIED SITES WITHOUT INFECTION 07/04/2012 STAPLETON DO PEEWEE K V76.10 BREAST CANCER SCREENING 07/04/2012 MARCELO LUGO MORENA PHILLIPS 339.10 HEADACHE, TENSION-TYPE 07/04/2012 MARCELO REAGANNMORENA 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 07/04/2012 MARCELO REAGANNMORENA 919.4 INSECT BITE NONVENOMOUS OF OTHER MULTIPLE AND UNSPECIFIED SITES WITHOUT INFECTION 07/04/2012 MARCELO REAGANNMORENA V76.10 BREAST CANCER SCREENING 07/04/2012 MARCELO REAGANSamuel MORENA PHILLIPS 339.10 HEADACHE, TENSION-TYPE 07/04/2012 MARCELO REAGANSamuel MORENA PHILLIPS 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 07/04/2012 MARCELO REAGANSamuel MORENA PHILLIPS 919.4 INSECT BITE NONVENOMOUS OF OTHER MULTIPLE AND UNSPECIFIED SITES WITHOUT INFECTION 07/04/2012 MARCELO REAGANSamuel MORENA PHILLIPS V76.10 BREAST CANCER SCREENING 07/04/2012 IRAMGEORGE CISNEROS APRN 339.10 HEADACHE, TENSION-TYPE 07/04/2012 GEORGE WALDEN APRN 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 07/04/2012 IRAMGEORGE CISNEROS APRN 919.4 INSECT BITE NONVENOMOUS OF OTHER MULTIPLE AND UNSPECIFIED SITES WITHOUT INFECTION 07/04/2012 IRAM POULTRY VETERINARIAN, GEORGE V76.10 BREAST CANCER SCREENING 07/04/2012 COSME SRIVASTAVA APRNINA R 339.10 HEADACHE, TENSION-TYPE 07/04/2012 ATIF LUGO KERA R 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 07/04/2012 ATIF LUGO KERA R 919.4 INSECT BITE NONVENOMOUS OF OTHER MULTIPLE AND UNSPECIFIED SITES WITHOUT INFECTION 07/04/2012 COSME SRIVASTAVA APRNINA R V76.10 BREAST CANCER SCREENING 07/04/2012 IRAM POULTRY VETERINARIAN GEORGE 339.10 HEADACHE, TENSION-TYPE 07/04/2012 IRAM POULTRY VETERINARIAN, GEORGE 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 07/04/2012 IRAM POULTRY VETERINARIAN, GEORGE 919.4 INSECT BITE NONVENOMOUS OF OTHER MULTIPLE AND UNSPECIFIED SITES WITHOUT INFECTION 07/04/2012 IRAM POULTRY VETERINARIAN, GEORGE V76.10 BREAST CANCER SCREENING 07/04/2012 339.10 HEADACHE, TENSION-TYPE 07/04/2012 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 07/04/2012 919.4 INSECT BITE NONVENOMOUS OF OTHER MULTIPLE AND UNSPECIFIED SITES WITHOUT INFECTION 07/04/2012 V76.10 BREAST CANCER SCREENING 02/15/2014 PEEWEE STAPLETON DO 728.85 SPASM OF MUSCLE 02/15/2014 MORENA ROBERTSON APRN 728.85 SPASM OF MUSCLE 02/15/2014 MORENA ROBERTSON APRN 728.85 SPASM OF MUSCLE 02/15/2014 IRAM BRITTNEY, GEORGE 728.85 SPASM OF MUSCLE 02/15/2014 KERA SRIVASTAVA APRN R 728.85 SPASM OF MUSCLE 02/15/2014 IRAM POULTRY VETERINARIAN, GEORGE 728.85 SPASM OF MUSCLE 02/19/2014 PEEWEE STAPLETON DO K 111.0 PITYRIASIS VERSICOLOR 02/19/2014 MORENA ROBERTSON APRN 111.0 PITYRIASIS VERSICOLOR 02/19/2014 MORENA ROBERTSON APRN 111.0 PITYRIASIS VERSICOLOR 02/19/2014 IRAMBLAYNE LUGO GEORGE 111.0 PITYRIASIS VERSICOLOR 02/19/2014 KERA SRIVASTAVA APRN R 111.0 PITYRIASIS VERSICOLOR 02/19/2014 IRAM POULTRY VETERINARIAN, GEORGE 111.0 PITYRIASIS VERSICOLOR 12/11/2014 KERA SRIVASTAVA APRN 708.9 UNSPECIFIED URTICARIA 12/11/2014 GEORGE WALDEN APRN 708.9 UNSPECIFIED URTICARIA 12/25/2014 GEORGE WALDEN APRN 296.40 MO BIPOLAR MANIC UNSPECIFIED Procedures Code Description [place] [address] A1C (IN-HOUSE) 05255 MAMMOGRAM, SCREENING 07/08/2012 Ophthalmo Arnulfo Bernabee 07/08/2012 63815 PSYCH IND W/MED CK 20 08/17/2012 05173 PSYCH IND W/MED CK 20 10/19/2012 77165 ROUTINE VENIPUNCTURE 05/12/2013 86810 CBC 05/12/2013 24196 CMP 05/12/2013 07820 LIPID PANEL 05/12 [id number] GFR CALC (RESULT ONLY) 05/12/2013 THYANA THYROID ANALYZER 05/12/2013 51470 LITHIUM 2012 Results Encounters ACCT No. Visit Date/Time Discharge Status Pt. Type Provider Facility Loc./Unit Complaint [id number] 12/25/2014 15:11:00 12/25/2014 23: 59:59 CLS Outpatient GEORGE WALDEN APRN [id number] 12/11/2014 14:44:00 12/11/2014 23: 59:59 CLS Outpatient KERA SRIVASTAVA APRN [id number] 09/25/2014 16:10:00 09/25/2014 23: 59:59 CLS Outpatient GEORGE WALDEN APRN [id number] 06/21/2014 14:32:00 06/21/2014 23: 59:59 CLS Outpatient MORENA ROBERTSON APRN [id number] 05/17/2014 14:59:00 05/17/2014 23: 59:59 CLS Outpatient MORENA ROBERTSON APRN [id number] 02/19/2014 18:14:00 02/19/2014 23: 59:59 CLS Outpatient PEEWEE STAPLETON DO [id number] 10/05/2013 15:47:00 10/05/2013 23: 59:59 CLS Outpatient MORENA ROBERTSON APRN [id number] 06/29/2013 15:52:00 06/29/2013 23: 59:59 CLS Outpatient MORENA ROBERTSON APRN [id number] 10/19/2012 15:48:00 10/19/2012 23: 59:59 CLS Outpatient MORENA ROBERTSON APRN [id number] 07/25/2012 15:30:00 07/25/2012 23: 59:59 CLS Outpatient MORENA ROBERTSON APRN [id number] 07/04/2012 14:26:00 07/04/2012 23:59 :59 CLS Outpatient [id number] 05/12/2013 09:18:00 Document Registration [id number] 03/01/2013 14:55:00 Document Registration [id number] 12/26/2012 14:55:00 Document Registration
[2017-03-30 13:26] LABS: EHRLICHIA CHAFFEENSIS G ABY 1:32 (<1:16)
== END 2017-03-26 00:19 | disposition home or self-care (01) ==
LOC: EDUNIT# 21:52 → ER 21:57
DX: S90.561A Insect bite (nonvenomous), right ankle, initial encounter (principal); S30.861A Insect bite (nonvenomous) of abdominal wall, initial encounter; F31.9 Bipolar disorder, unspecified; F20.9 Schizophrenia, unspecified; F17.210 Nicotine dependence, cigarettes, uncomplicated; W57.XXXA Bitten or stung by nonvenomous insect and other nonvenomous arthropods, initial encounter
CPT/HCPCS: 36415; 80053; 85025; 86618; 86666; 86668; 86757; 99283